=== PATIENT | female | born 1960 | race Caucasian/White ===

== ENCOUNTER → 2020-07-05 | Outpatient (CLI) | payer SELFPAY | LOC: M LABSMTC 10:23 | PROVIDERS: ATTEND Family Medicine | DX: Z20.828 Contact with and (suspected) exposure to other viral communicable diseases (principal) ==

== ENCOUNTER → 2021-09-20 | Outpatient (REF) ==
[~2021-09-20] MED LIST: MUCI1TAB16 PO; VENTAER INH
== END ==
LOC: M LABSMTC 10:11
PROVIDERS: ATTEND Family Medicine
DX: Z20.828 Contact with and (suspected) exposure to other viral communicable diseases (principal)

== ENCOUNTER 2021-09-25 10:19 | Emergency (ER) | payer BC, SELFPAY ==
[~2021-09-25] VITALS: Ht 167.6 cm; Wt 62.7 kg
[2021-09-25] MEDS ORDERED: VENTAER INH (10:29)
[2021-09-25] MEDS ORDERED: MUCI1TAB16 PO (10:29)
[2021-09-25 11:29] VITALS: O2SAT 88
[2021-09-25 13:32] VITALS: BP 129/70
== END 2021-09-25 13:47 | disposition home or self-care (01) ==
LOC: M ED 10:19
DX: R06.02 Shortness of breath (principal); F17.200 Nicotine dependence, unspecified, uncomplicated; F12.10 Cannabis abuse, uncomplicated

== ENCOUNTER → 2024-09-12 | Outpatient (REF) | LOC: M EMP 10:38 | PROVIDERS: ATTEND Family Medicine | DX: Z11.52 Encounter for screening for COVID-19 (principal) ==